=== PATIENT | female | born 1980 | race Caucasian/White ===

== ENCOUNTER 2017-09-01 16:30 | Inpatient (IN) | payer OTHER ==
[2017-09-01 16:58] VITALS: BMI 25.4
--- NOTE | 2017-09-01 20:32 | HP ---
COWS - Scale Resting Pulse: 1= [place] 81-100 Sweatin=Flushed/Facial Moisture Restless Observation: 0= Sits Still Pupil Size: 0= Normal to Room Light Bone or Joint Aches: 4=Acute Joint/Muscle Pain Runny Nose/ Eye Tearin= Runny Nose/Eyes GI Upset > 30mins: 3= Vomiting/Diarrhea (vomiting x 2, diarrhea x 3) Tremor Observation: 2= Slight Tremor Visible Yawning Observation: 1= 1-2x During Session Anxiety or Irritability: 4=Extreme Anxiety Goose Flesh Skin: 0=Smooth Skin COWS Score: 19 CIWA Score - CIWA Score Auditory Disturbances: 0-None Admission ROS BHS - HPI Chief Complaint: Heroin withdrawal symptoms Allergies/Adverse Reactions: Allergies Allergy/AdvReac Type Severity Reaction Status Date / Time No Known Allergies Allergy Verified 09/01/17 18:26 History of Present Illness: 37 years old female with four years history of heroin dependence is seeking admission to detox. Patient has been in previous detox at [facility] in [place] and reports insignificant period of sobriety. She has medical history of Hep. C, depression and anxiety. She denies suicide attempt aand suicidal ideation at this time. Exam Limitations: No Limitations - Ebola screening Have you traveled outside of the country in the last 21 days: No Have you had contact with anyone from an Ebola affected area: No Have you been sick,other than usual withdrawal symptoms: No Do you have a fever: No - Review of Systems Constitutional: Chills EENT: reports: No Symptoms Reported Respiratory: reports: No Symptoms reported Cardiac: reports: No Symptoms Reported GI: reports: Diarrhea, Poor Appetite, Poor Fluid Intake, Vomiting, Abdominal cramping : reports: No Symptoms Reported Musculoskeletal: reports: Back Pain, Joint Pain, Muscle Pain, Muscle Weakness, Neck Pain Integumentary: reports: Dryness Neuro: reports: Headache, Tremors, Weakness Endocrine: reports: No Symptoms Reported Hematology: reports: No Symptoms Reported Psychiatric: reports: Anxious, Depressed Other Systems: Reviewed and Negative Patient History - Patient Medical History Hx Anemia: No Hx Asthma: No Hx Chronic Obstructive Pulmonary Disease (COPD): No Hx Cancer: No Hx Cardiac Disorders: No Hx Congestive Heart Failure: No Hx Hypertension: No Hx Hypercholesterolemia: No Hx Pacemaker: No HX Cerebrovascular Accident: No Hx Seizures: No Hx Dementia: No Hx Diabetes: No Hx Gastrointestinal Disorders: No Hx Liver Disease: Yes (Hep. C- Not treated) Hx Genitourinary Disorders: No Hx Sexually Transmitted Disorders: No Hx Renal Disease (ESRD): No Hx Thyroid Disease: No Hx Human Immunodeficiency Virus (HIV): No (Negative 2017) Hx Hepatitis C: Yes (Not treated) Hx Depression: Yes (Wellbutrin, Gabapentin, Hydroxyzine, Topramax) Hx Suicide Attempt: No (Denies suicide attempt and suicidal ideation at this time) Hx Bipolar Disorder: Yes (Wellbutrin, Gabapentin, Hydroxyzine, Topramax) Hx Schizophrenia: No Other Medical History: Anxiety -Wellbutrin, Gabapentin, Hydroxyzine, Topramax - Patient Surgical History Past Surgical History: No Hx Neurologic Surgery: No Hx Cataract Extraction: No Hx Cardiac Surgery: No Hx Lung Surgery: No Hx Breast Surgery: No Hx Breast Biopsy: No Hx Abdominal Surgery: No Hx Appendectomy: No Hx Cholecystectomy: No Hx Genitourinary Surgery: No Hx Section: No Hx Orthopedic Surgery: No Anesthesia Reaction: No - PPD History Previous Implant?: Yes Documented Results: Negative w/o proof - Smoking Cessation Smoking history: Current every day smoker Have you smoked in the past 12 months: Yes Aproximately how many cigarettes per day: 20 Hx Chewing Tobacco Use: No Initiated information on smoking cessation: Yes 'Breaking Loose' booklet given: 09/01/17 - Substances Abused Heroin Route: Injection Frequency: Daily Amount used: 10 bags, Age of first use: 33 Date of Last Use: 08/31/17 Alprazolam (Xanax) Route: Oral Frequency: Daily Amount used: 2mg Age of first use: 18 Date of Last Use: 08/30/17 Crack Route: Smoking Frequency: Daily Amount used: 1 bag Age of first use: 29 Date of Last Use: 08/30/17 Family Disease History - Family Disease History Family History: Denies Admission Physical Exam S - Vital Signs Vital Signs: Vital Signs - 24 hr 09/01/17 16:55 Temperature 98.8 F Pulse Rate 84 Respiratory 18 Rate Blood Pressure 112/69 - Physical General Appearance: Yes: Moderate Distress, Tremorous, Irritable, Sweating, Anxious HEENTM: Yes: EOMI, Normal ENT Inspection, Normocephalic, Normal Voice, ALIA Respiratory: Yes: Lungs Clear, Normal Breath Sounds, No Respiratory Distress Neck: Yes: Supple Breast: Yes: Breast Exam Deferred Cardiology: Yes: Regular Rhythm, Regular Rate, S1, S2 Abdominal: Yes: Normal Bowel Sounds Genitourinary: Yes: Within Normal Limits Back: Yes: Normal Inspection Musculoskeletal: Yes: Back pain, Muscle Pain, Muscle weakness Extremities: Yes: Tremors Neurological: Yes: Alert, Normal Mood/Affect Integumentary: Yes: Dry Lymphatic: Yes: Within Normal Limits - Diagnostic (1) Opioid dependence with withdrawal Current Visit: Yes Status: Chronic (2) Cocaine dependence, uncomplicated Current Visit: Yes Status: Chronic (3) Cannabis dependence, uncomplicated Current Visit: Yes Status: Chronic (4) Depression Current Visit: Yes Status: Chronic (5) Anxiety Current Visit: Yes Status: Chronic (6) Hep C w/o coma, chronic Current Visit: Yes Status: Chronic Cleared for Admission [facility] - Detox or Rehab [facility] Level of Care: Medically Managed Detox Regimen/Protocol: Methadone [facility] Breath Alcohol Content Breath Alcohol Content: 0 Urine Pregancy Test - Result Urine Test Results: Negative- NO Line Present Urine Drug Screen - Results Drug Screen Negative: No Urine Drug Screen Results: THC-Marijuana, DEXTER-Cocaine, OPI-Opiates
[2017-09-01] MEDS ORDERED: IBUPROFEN 400 MG TABLET (FP) PO PRN (20:43)
[2017-09-01] MEDS ORDERED: MAG HYDROX/AL HYDROX/SIMETH 30 ML UNIT-DOSE CUP PO PRN (20:43)
[2017-09-01] MEDS ORDERED: P-EPHED 60MG/TRIPROLIDI 2.5MG TABLET PO PRN (20:43)
[2017-09-01] MEDS ORDERED: MAGNESIUM CITRATE 300 ML BOTTLE PO PRN (20:43)
[2017-09-01] MEDS ORDERED: MENTHOL/PHENOL 1 EACH UD MM PRN (20:43)
[2017-09-01] MEDS ORDERED: MAGNESIUM HYDROX 2400MG/30ML ORAL SUSPENSION 30 ML CUP PO PRN (20:43)
[2017-09-01] MEDS ORDERED: guaiFENesin/D-METHORPHAN HB 10 ML UNIT-DOSE CUPS PO PRN (20:43)
[2017-09-01] MEDS ORDERED: LOPERAMIDE HCL 2 MG CAPSULE PO PRN (20:43)
[2017-09-01] MEDS ORDERED: ACETAMINOPHEN 325 MG TABLET (FP) PO PRN (20:48)
[2017-09-01] MEDS ORDERED: METHADONE HCL 10 MG TABLET (FOR DETOX USE ONLY) PO ONE ×2 (21:00→23:00)
[2017-09-01] MEDS ORDERED: MELATONIN 5 MG TABLETS PO PRN (22:00)
[2017-09-01] MEDS: diazePAM 5 MG TABLET PO PRN (23:01)
[2017-09-01] MEDS: THIAMINE HCL 100 MG TABLET (FP) PO SCH (23:02)
[2017-09-02 08:17] LABS: URINE APPEARANCE CLEAR; URINE BILIRUBIN NEGATIVE (<2.0 mg/dL); URINE COLOR YELLOW; URINE GLUCOSE (UA) NEGATIVE (NEGATIVE); URINE KETONE 1+ (NEGATIVE); URINE LEUK ESTERASE NEGATIVE (NEGATIVE); URINE NITRITE NEGATIVE (NEGATIVE); URINE PROTEIN NEGATIVE (NEGATIVE)
--- NOTE | 2017-09-02 09:47 | EKG ---
Test Reason : Blood Pressure : / mmHG Vent. Rate : 076 BPM Atrial Rate : 076 BPM P-R Int : 128 ms QRS Dur : 072 ms QT Int : 368 ms P-R-T Axes : 071 075 047 degrees QTc Int : 414 ms NORMAL SINUS RHYTHM WITH SINUS ARRHYTHMIA NORMAL ECG NO PREVIOUS ECGS AVAILABLE Confirmed by VALDEMAR JESUS MD ([id number]) on 09/02/2017 9:47:27 AM Referred By: Confirmed By:VALDEMAR JESUS MD
[2017-09-02 09:52] LABS: HEMATOCRIT 34.1 % (32.4-45.2); HEMOGLOBIN 11.3 GM/dL (10.7-15.3); MCH 30.1 pg (25.7-33.7); MCHC 33.2 g/dl (32.0-36.0); MEAN CELL VOLUME 90.9 fl (80-96); MEAN PLT VOLUME 9.3 fl (7.5-11.1); PLATELET COUNT 161 K/MM3 (134-434); RBC 3.75 M/mm3 (3.60-5.2); RDW 16.8 % (11.6-15.6); WHITE BLOOD COUNT 6.7 K/mm3 (4.0-10.0)
[2017-09-02 10:00] LABS: CHLORIDE 108 mmol/L (98-107); POTASSIUM 3.1 mmol/L (3.5-5.1); SODIUM 142 mmol/L (136-145)
[2017-09-02] MEDS ORDERED: METHADONE HCL 10 MG TABLET (FOR DETOX USE ONLY) PO ONE (10:00)
--- NOTE | 2017-09-02 10:13 | CONSULT ---
[facility] Psychiatric Consult - Data Date of interview: 09/02/17 Admission source: [facility] Identifying data: Patient is a 37 year old single female, without kids, unemployed, homeless and not receiving financial assistance. [facility] Pt. admitted to for opiate dependence. Substance Abuse History: - Smoking Cessation. Smoking history: Current every day smoker. Have you smoked in the past 12 months: Yes. Aproximately how many cigarettes per day: 20. Hx Chewing Tobacco Use: No. Initiated information on smoking cessation: Yes. 'Breaking Loose' booklet given: 09/01/17. - Substances Abused. Heroin. Route: Injection. Frequency: Daily. Amount used: 10 bags,. Age of first use: 33. Date of Last Use: 08/31/17. Alprazolam (Xanax). Route: Oral. Frequency: Daily. Amount used: 2mg. Age of first use: 18. Date of Last Use: 08/30/17. Crack. Route: Smoking. Frequency: Daily. Amount used: 1 bag. Age of first use: 29. Date of Last Use : 08/30/17 Medical History: Hep C Psychiatric History: Patient denies h/o psychiatric hospitalizations. Pt. was receiving outpatient psychiatric care at the [facility] but since being discharged in june of this year patient has been receiving refills of her medications from detox and rehab facilites. Pt is currently prescribed Wellbutrin 300mg XL + Topamax 200mg BID + Vistaril 50mg QID. Patient denies h/o suicide attempt. Physical/Sexual Abuse/Trauma History: Denies. Mental Status Exam - Mental Status Exam Alert and Oriented to: Time, Place, Person Cognitive Function: Good Patient Appearance: Unkempt Mood: Hopeful, Euthymic Affect: Mood Congruent Patient Behavior: Appropriate, Cooperative Speech Pattern: Clear, Appropriate Voice Loudness: Normal Thought Process: Intact, Goal Oriented Thought Disorder: Not Present Hallucinations: Denies Suicidal Ideation: Denies Homicidal Ideation: Denies Insight/Judgement: Poor Sleep: Poorly Appetite: Fair Muscle strength/Tone: Normal Gait/Station: Normal Psychiatric Findings - Problem List ([place] 1, 2,3) (1) Opioid dependence with withdrawal Current Visit: Yes Status: Chronic (2) Bipolar disorder Current Visit: Yes Status: Acute Comment: Reports history (3) Cannabis dependence, uncomplicated Current Visit: Yes Status: Chronic (4) Cocaine dependence, uncomplicated Current Visit: Yes Status: Chronic (5) Hep C w/o coma, chronic Current Visit: Yes Status: Chronic - Initial Treatment Plan Initial Treatment Plan: Psychoeducation provided. Detoxification in progress. Wellbutrin 300mg XL + Topamax 200mg BID + Vistaril 50mg Q4h + Ambien 10mg qhs. Benefits and side effects discussed. Verbal consent given. Will continue to monitor.
[2017-09-02 10:40] LABS: ALK PHOS 62 U/L (45-117); ANION GAP 11 (8-16); BILIRUBIN,TOTAL 0.3 mg/dL (0.2-1.0); BLOOD UREA NITROGEN 9 mg/dL (7-18); CALCIUM 8.5 mg/dL (8.5-10.1); CO2 23 mmol/L (21-32); CREATININE 0.8 mg/dL (0.55-1.02); GLUCOSE,RANDOM 109 mg/dL (74-106); SGOT/AST 44 U/L (15-37); SGPT/ALT 68 U/L (12-78); TOT PROT 6.4 g/dl (6.4-8.2)
--- NOTE | 2017-09-02 10:58 | PN ---
BHS CIWA - CIWA Score Nausea/Vomitin-No Nausea/No Vomiting Muscle Tremors: None Anxiety: 0-No Anxiety, at Ease Agitation: 0-Normal Activity Paroxysmal Sweats: No Perspiration Orientation: 0-Oriented Tacttile Disturbances: 0-None Auditory Disturbances: 0-None (pt without Sx)
--- NOTE | 2017-09-02 11:00 | PN ---
BHS COWS - Scale Resting Pulse: 0= [place] 80 or Below Sweatin= No chills or Flushing Restless Observation: 0= Sits Still Pupil Size: 0= Normal to Room Light Bone or Joint Aches: 0= None Runny Nose/ Eye Tearin= None GI Upset > 30mins: 0= None Tremor Observation of Outstretched Hands: 0= None Yawning Observation: 0= None (pt laying in bed in NAD)
--- NOTE | 2017-09-02 11:04 | PN ---
BHS Progress Note (SOAP) Subjective: Pt is without complaints today- lying in bed. States she was in a Suboxone program but ran out of this and relapsed to using heroin- says she would like to get back on Suboxone at discharge. Also taking benzo's prn but daily per admission note Objective: 09/02/17 11:01 CBC, BMP 09/02/17 08:00 Vital Signs - 24 hr 09/01/17 09/01/17 09/02/17 16:55 23:05 00:30 Temperature 98.8 F 98.2 F Pulse Rate 84 82 Respiratory 18 18 18 Rate Blood Pressure 112/69 110/65 09/02/17 09/02/17 09/02/17 03:30 07:27 09:27 Temperature 97.7 F 97.7 F Pulse Rate 70 72 Respiratory 18 18 18 Rate Blood Pressure 102/63 93/55 lying in bed comfortably Assessment: 09/02/17 11:02 37 yo with h/o heroin use and occ zanax use- here on methadone for heroin detox and prn valium Plan: Continue methadone detox and f/u for subxone treatment at discharge. Pt is also taking Xanax- says that she only uses occasionally
[2017-09-02] MEDS: PRENATAL VITAMINS W/ FOLIC ACID TABLET (FP) PO SCH (11:06)
[2017-09-02] MEDS: NICOTINE 14 MG/24 HOURS TOPICAL PATCH TD SCH (11:08)
[2017-09-02] MEDS: diazePAM 5 MG TABLET PO PRN ×2 (11:08→17:43)
[2017-09-02] MEDS: TOPIRAMATE 100 MG TABLET PO SCH ×2 (11:13→22:09)
[2017-09-02] MEDS: hydrOXYzine PAMOATE 50 MG CAPSULE (FP) PO PRN (19:31)
[2017-09-02] MEDS: THIAMINE HCL 100 MG TABLET (FP) PO SCH (22:09)
[2017-09-02] MEDS: ZOLPIDEM TARTRATE 10 MG TABLET (PARK CARE ONLY) PO PRN (22:09)
[2017-09-03] MEDS ORDERED: METHADONE HCL 5 MG TABLET (FOR DETOX USE ONLY) PO ONE (10:00)
[2017-09-03] MEDS: TOPIRAMATE 100 MG TABLET PO SCH ×2 (10:18→22:10)
[2017-09-03] MEDS: PRENATAL VITAMINS W/ FOLIC ACID TABLET (FP) PO SCH (10:18)
[2017-09-03] MEDS: NICOTINE 14 MG/24 HOURS TOPICAL PATCH TD SCH (10:18)
[2017-09-03] MEDS: diazePAM 5 MG TABLET PO PRN ×3 (10:19→20:25)
[2017-09-03] MEDS: NICOTINE POLACRILEX 2 MG GUM BUC PRN (10:23)
[2017-09-03 10:38] LABS: ANION GAP 7 (8-16); BLOOD UREA NITROGEN 8 mg/dL (7-18); CALCIUM 8.4 mg/dL (8.5-10.1); CHLORIDE 111 mmol/L (98-107); CO2 24 mmol/L (21-32); GLUCOSE,RANDOM 84 mg/dL (74-106); POTASSIUM 3.7 mmol/L (3.5-5.1); SGOT/AST 55 U/L (15-37); SGPT/ALT 77 U/L (12-78); SODIUM 142 mmol/L (136-145)
[2017-09-03 10:40] LABS: ALK PHOS 58 U/L (45-117); BILIRUBIN,TOTAL 0.2 mg/dL (0.2-1.0); CREATININE 0.8 mg/dL (0.55-1.02); TOT PROT 6.3 g/dl (6.4-8.2)
[2017-09-03] MEDS: hydrOXYzine PAMOATE 50 MG CAPSULE (FP) PO PRN ×3 (12:31→22:14)
--- NOTE | 2017-09-03 16:10 | PN ---
[facility] Progress Note (SOAP) Subjective: sleep disturbance shakes abd cramp Anxious about not getting her valtrex Objective: 09/03/17 16:08 A & O x 3 Laboratory Last Values WBC 6.7 K/mm3 (4.0-10.0) 09/02/17 08:00 RBC 3.75 M/mm3 (3.60-5.2) 09/02/17 08:00 Hgb 11.3 GM/dL (10.7-15.3) 09/02/17 08:00 Hct 34.1 % (32.4-45.2) 09/02/17 08:00 MCV 90.9 fl (80-96) 09/02/17 08:00 MCH 30.1 pg (25.7-33.7) 09/02/17 08:00 MCHC 33.2 g/dl (32.0-36.0) 09/02/17 08:00 RDW 16.8 % (11.6-15.6) H 09/02/17 08:00 Plt Count 161 K/MM3 (134-434) 09/02/17 08:00 MPV 9.3 fl (7.5-11.1) 09/02/17 08:00 Sodium 142 mmol/L (136-145) 09/03/17 08:00 Potassium 3.7 mmol/L (3.5-5.1) 09/03/17 08:00 Chloride 111 mmol/L (98-107) H 09/03/17 08:00 Carbon Dioxide 24 mmol/L (21-32) 09/03/17 08:00 Anion Gap 7 (8-16) L 09/03/17 08:00 BUN 8 mg/dL (7-18) 09/03/17 08:00 Creatinine 0.8 mg/dL (0.55-1.02) 09/03/17 08:00 Creat Clearance w eGFR > 60 (>60) 09/03/17 08:00 Random Glucose 84 mg/dL (74-106) 09/03/17 08:00 Calcium 8.4 mg/dL (8.5-10.1) L 09/03/17 08:00 Total Bilirubin 0.2 mg/dL (0.2-1.0) D 09/03/17 08:00 AST 55 U/L (15-37) H 09/03/17 08:00 ALT 77 U/L (12-78) 09/03/17 08:00 Alkaline Phosphatase 58 U/L (45-117) 09/03/17 08:00 Total Protein 6.3 g/dl (6.4-8.2) L 09/03/17 08:00 Albumin 3.0 g/dl (3.4-5.0) L 09/03/17 08:00 Urine Color Yellow 09/01/17 23:00 Urine Appearance Clear 09/01/17 23:00 Urine pH 6.0 (5.0-8.0) 09/01/17 23:00 Ur Specific [place] 1.013 (1.001-1.035) 09/01/17 23:00 Urine Protein Negative (NEGATIVE) 09/01/17 23:00 Urine Glucose (UA) Negative (NEGATIVE) 09/01/17 23:00 Urine Ketones 1+ (NEGATIVE) H 09/01/17 23:00 Urine Blood Negative (NEGATIVE) 09/01/17 23:00 Urine Nitrite Negative (NEGATIVE) 09/01/17 23:00 Urine Bilirubin Negative (<2.0 mg/dL) 09/01/17 23:00 Urine Urobilinogen 2.0 mg/dL (0.2-1.0) H 09/01/17 23:00 Ur Leukocyte Esterase Negative (NEGATIVE) 09/01/17 23:00 RPR Titer Nonreactive (NONREACTIVE) 09/02/17 08:00 HIV 1&2 Antibody Screen Negative 09/02/17 08:00 HIV P24 Antigen Negative 09/02/17 08:00 labs noted Assessment: 09/03/17 16:09 withdrawal sx abnormal urinalysis Plan: continue detox increase water hydration Valtrx 500mg BID for Herpes
--- NOTE | 2017-09-03 16:11 | PN ---
[facility] Progress Note Note: Psychiatrist rewards consultant note: Called by nursing staff to order medication for patient. Medication reconciliation done. Gabapentin 400 mg po TID ordered
[2017-09-03] MEDS: valACYclovir HCL 500 MG TABLET (FP) PO SCH (22:10)
[2017-09-03] MEDS: GABAPENTIN 400 MG CAPSULE (FP) PO SCH (22:10)
[2017-09-03] MEDS: THIAMINE HCL 100 MG TABLET (FP) PO SCH (22:11)
[2017-09-03] MEDS: ZOLPIDEM TARTRATE 10 MG TABLET (PARK CARE ONLY) PO PRN (22:14)
[2017-09-04] MEDS: diazePAM 5 MG TABLET PO PRN ×4 (06:07→18:42)
[2017-09-04] MEDS: GABAPENTIN 400 MG CAPSULE (FP) PO SCH ×3 (06:08→22:15)
[2017-09-04] MEDS ORDERED: METHADONE HCL 5 MG TABLET (FOR DETOX USE ONLY) PO ONE (10:00)
[2017-09-04] MEDS: PRENATAL VITAMINS W/ FOLIC ACID TABLET (FP) PO SCH (10:10)
[2017-09-04] MEDS: valACYclovir HCL 500 MG TABLET (FP) PO SCH ×2 (10:10→22:15)
[2017-09-04] MEDS: TOPIRAMATE 100 MG TABLET PO SCH ×2 (10:10→22:15)
[2017-09-04] MEDS: NICOTINE 14 MG/24 HOURS TOPICAL PATCH TD SCH (10:11)
[2017-09-04] MEDS: hydrOXYzine PAMOATE 50 MG CAPSULE (FP) PO PRN ×3 (12:24→22:17)
--- NOTE | 2017-09-04 12:24 | PN ---
BHS Progress Note (SOAP) Subjective: JOINT PAINT BODY ACHE SWEAT TREMOR GI DISTRESS IRRITABLE Objective: 09/04/17 12:30 Vital Signs Temperature 97.7 F 09/04/17 09:26 Pulse Rate 88 09/04/17 09:26 Respiratory Rate 18 09/04/17 09:26 Blood Pressure 115/65 09/04/17 09:26 O2 Sat by Pulse Oximetry (%) Laboratory Last Values WBC 6.7 K/mm3 (4.0-10.0) 09/02/17 08:00 RBC 3.75 M/mm3 (3.60-5.2) 09/02/17 08:00 Hgb 11.3 GM/dL (10.7-15.3) 09/02/17 08:00 Hct 34.1 % (32.4-45.2) 09/02/17 08:00 MCV 90.9 fl (80-96) 09/02/17 08:00 MCH 30.1 pg (25.7-33.7) 09/02/17 08:00 MCHC 33.2 g/dl (32.0-36.0) 09/02/17 08:00 RDW 16.8 % (11.6-15.6) H 09/02/17 08:00 Plt Count 161 K/MM3 (134-434) 09/02/17 08:00 MPV 9.3 fl (7.5-11.1) 09/02/17 08:00 Sodium 142 mmol/L (136-145) 09/03/17 08:00 Potassium 3.7 mmol/L (3.5-5.1) 09/03/17 08:00 Chloride 111 mmol/L (98-107) H 09/03/17 08:00 Carbon Dioxide 24 mmol/L (21-32) 09/03/17 08:00 Anion Gap 7 (8-16) L 09/03/17 08:00 BUN 8 mg/dL (7-18) 09/03/17 08:00 Creatinine 0.8 mg/dL (0.55-1.02) 09/03/17 08:00 Creat Clearance w eGFR > 60 (>60) 09/03/17 08:00 Random Glucose 84 mg/dL (74-106) 09/03/17 08:00 Calcium 8.4 mg/dL (8.5-10.1) L 09/03/17 08:00 Total Bilirubin 0.2 mg/dL (0.2-1.0) D 09/03/17 08:00 AST 55 U/L (15-37) H 09/03/17 08:00 ALT 77 U/L (12-78) 09/03/17 08:00 Alkaline Phosphatase 58 U/L (45-117) 09/03/17 08:00 Total Protein 6.3 g/dl (6.4-8.2) L 09/03/17 08:00 Albumin 3.0 g/dl (3.4-5.0) L 09/03/17 08:00 Urine Color Yellow 09/01/17 23:00 Urine Appearance Clear 09/01/17 23:00 Urine pH 6.0 (5.0-8.0) 09/01/17 23:00 Ur Specific [place] 1.013 (1.001-1.035) 09/01/17 23:00 Urine Protein Negative (NEGATIVE) 09/01/17 23:00 Urine Glucose (UA) Negative (NEGATIVE) 09/01/17 23:00 Urine Ketones 1+ (NEGATIVE) H 09/01/17 23:00 Urine Blood Negative (NEGATIVE) 09/01/17 23:00 Urine Nitrite Negative (NEGATIVE) 09/01/17 23:00 Urine Bilirubin Negative (<2.0 mg/dL) 09/01/17 23:00 Urine Urobilinogen 2.0 mg/dL (0.2-1.0) H 09/01/17 23:00 Ur Leukocyte Esterase Negative (NEGATIVE) 09/01/17 23:00 RPR Titer Nonreactive (NONREACTIVE) 09/02/17 08:00 HIV 1&2 Antibody Screen Negative 09/02/17 08:00 HIV P24 Antigen Negative 09/02/17 08:00 LAB NOTED Assessment: 09/04/17 12:30 WITHDRAWAL SX Plan: CONTINUE DETOX
[2017-09-04] MEDS: NICOTINE POLACRILEX 2 MG GUM BUC PRN (13:20)
[2017-09-04] MEDS ORDERED: COLLOIDAL OATMEAL 1 BAR EACH TP PRN (14:16)
[2017-09-04] MEDS: THIAMINE HCL 100 MG TABLET (FP) PO SCH (22:15)
[2017-09-04] MEDS: ZOLPIDEM TARTRATE 10 MG TABLET (PARK CARE ONLY) PO PRN (22:15)
[2017-09-04] MEDS ORDERED: MELATONIN 5 MG TABLETS PO ONE (23:45)
--- NOTE | 2017-09-04 23:55 | PN ---
S Progress Note Note: c/o insomnia after ambien 10 mg 2 hours later. client was also given vistaril earlier with no effect. client became agitated and argumentative with staff. give melatonin 5 mg now. psych consult in am for insomnia .
[2017-09-05] MEDS: GABAPENTIN 400 MG CAPSULE (FP) PO SCH (06:46)
[2017-09-05] MEDS: hydrOXYzine PAMOATE 50 MG CAPSULE (FP) PO PRN (06:47)
--- NOTE | 2017-09-05 08:12 | PN ---
Psychiatric Progress Note Vital Signs: Vital Signs Period Temp Pulse Resp BP Sys/Benavidez Pulse Ox Last 24 Hr 97.2 F-98.4 F 88-101 18-20 93-115/56-65 Date of Session: 09/05/17 Chief Complaint:: Anxiety, agitation, insomnia HPI: Patient reports anxiety and insomnia, asking for pharmacological intervention, reports good re[ponse prior to admission for: Trazodone 100mg po qhs. Flexeril 10mg pop tid. Vistaril 100mg p[o tid Current Medications: Active Medications Generic Name Dose Route Start Last Admin Trade Name Freq PRN Reason Stop Dose Admin Acetaminophen 650 mg 09/01/17 20:48 Tylenol - PO Q4H PRN FEVER Al Hydroxide/Mg Hydroxide 30 ml 09/01/17 20:43 Mylanta Oral Suspension - PO Q6H PRN DYSPEPSIA Bupropion HCl 300 mg 09/02/17 10:15 09/04/17 10:10 Wellbutrin Xl - PO 300 mg DAILY DUSTY Administration Colloidal Oatmeal 1 applic 09/04/17 14:16 Aveeno Soap - TP DAILY PRN HYGEINE Cyclobenzaprine HCl 10 mg 09/05/17 14:00 Flexeril - PO TID DUSTY Eucalyptus/Menthol/Phenol/Sorbitol 1 each 09/01/17 20:43 Cepastat Lozenge - MM Q4H PRN SORE THROAT Gabapentin 400 mg 09/03/17 22:00 09/05/17 06:46 Neurontin - PO 400 mg TID DUSTY Administration Guaifenesin 10 ml 09/01/17 20:43 Robitussin Dm - PO Q6H PRN COUGH Hydroxyzine Pamoate 100 mg 09/05/17 14:00 Vistaril - PO TID DUSTY Ibuprofen 400 mg 09/01/17 20:43 Motrin - PO Q6H PRN PAIN LEVEL 4-6 Loperamide HCl 4 mg 09/01/17 20:43 Imodium - PO Q6H PRN DIARRHEA Magnesium Citrate 300 ml 09/01/17 20:43 Citroma - PO Q48H PRN CONSTIPATION Magnesium Hydroxide 30 ml 09/01/17 20:43 Milk Of Magnesia - PO DAILY PRN CONSTIPATION Methadone HCl 5 mg 09/06/17 06:00 Dolophine - PO 09/06/17 06:01 ONCE@0600 ONE Methadone HCl 10 mg 09/05/17 10:00 Dolophine - PO 09/05/17 10:01 ONCE ONE Nicotine 14 mg 09/02/17 10:00 09/04/17 10:11 Nicoderm Patch - TD 14 mg DAILY DUSTY Administration Nicotine Polacrilex 2 mg 09/01/17 20:43 09/04/17 13:20 Nicorette Gum - BUC 2 mg Q2H PRN Administration NICOTINE REPLACEMENT RX Multivit/Folic Acid/Iron 1 tab 09/02/17 10:00 09/04/17 10:10 Vitamins (Sjr) - PO 1 tab DAILY DUSTY Administration Pseudoephedrine/Triprolidine 1 combo 09/01/17 20:43 Actifed - PO TID PRN NASAL CONGESTION Thiamine HCl 100 mg 09/01/17 22:00 09/04/17 22:15 Vitamin B1 - PO 100 mg HS DUSTY Administration Topiramate 200 mg 09/02/17 10:15 09/04/17 22:15 Topamax - PO 200 mg BID DUSTY Administration Trazodone HCl 100 mg 09/05/17 22:00 Desyrel - PO HS DUSTY Valacyclovir HCl 500 mg 09/03/17 22:00 09/04/17 22:15 Valtrex - PO 500 mg BID DUSTY Administration Zolpidem Tartrate 10 mg 09/02/17 22:00 09/04/17 22:15 Ambien - PO 09/05/17 21:59 10 mg HS PRN Administration INSOMNIA Medication(s) Change(s): Trazodone 100mg po qhs. Flexeril 10mg pop tid. Vistaril 100mg p[o tid Mental Status Exam - Mental Status Exam Alert and Oriented to: Place, Person Cognitive Function: Fair Patient Appearance: Unkempt Mood: Anxious, Irritable Affect: Labile Patient Behavior: Talkative, Cooperative Speech Pattern: Excessive Voice Loudness: Normal Thought Process: Goal Oriented Thought Disorder: Being Controlled Hallucinations: Denies Suicidal Ideation: Denies Homicidal Ideation: Denies Insight/Judgement: Fair Sleep: Difficulty falling asleep Appetite: Weight loss Muscle strength/Tone: Normal Gait/Station: Normal Additional Comments: Trazodone 100mg po qhs. Flexeril 10mg pop tid. Vistaril 100mg p[o tid Psychiatric Treatment Plan - Problem List (1) Bipolar disorder Current Visit: Yes Comment: Reports history (2) Anxiety Current Visit: Yes (3) Cannabis dependence, uncomplicated Current Visit: Yes (4) Cocaine dependence, uncomplicated Current Visit: Yes (5) Hep C w/o coma, chronic Current Visit: Yes (6) Opioid dependence with withdrawal Current Visit: Yes (7) Xanax use disorder, mild Current Visit: Yes Initial treatment plan: Trazodone 100mg po qhs. Flexeril 10mg pop tid. Vistaril 100mg p[o tid
[2017-09-05 09:15] VITALS: BP 106/58; PULSE 85; TEMP 97.7
[2017-09-05] MEDS ORDERED: METHADONE HCL 10 MG TABLET (FOR DETOX USE ONLY) PO ONE (10:00)
[2017-09-05] MEDS: NICOTINE 14 MG/24 HOURS TOPICAL PATCH TD SCH (10:35)
[2017-09-05] MEDS: valACYclovir HCL 500 MG TABLET (FP) PO SCH (10:35)
[2017-09-05] MEDS: PRENATAL VITAMINS W/ FOLIC ACID TABLET (FP) PO SCH (10:35)
[2017-09-05] MEDS: TOPIRAMATE 100 MG TABLET PO SCH (10:35)
--- NOTE | 2017-09-05 11:54 | DS ---
[facility] Detox Discharge Summary Admission Date: 09/01/17 Discharge Date: 09/05/17 - History Present History: Opioid Dependence, Sedative Dependence Additional Comments: 37 years old female admitted 09/01/17 for benzo and opiate withdrawal sx insists to terminate benzo and opiate detox regimen the mother of the patient requests the patient to attend family matter patient is alert oriented x 3 no acute distress - Physical Exam Results Vital Signs: Vital Signs Temperature 97.7 F 09/05/17 09:14 Pulse Rate 85 09/05/17 09:14 Respiratory Rate 16 09/05/17 09:14 Blood Pressure 106/58 09/05/17 09:14 O2 Sat by Pulse Oximetry (%) Laboratory Last Values WBC 6.7 K/mm3 (4.0-10.0) 09/02/17 08:00 RBC 3.75 M/mm3 (3.60-5.2) 09/02/17 08:00 Hgb 11.3 GM/dL (10.7-15.3) 09/02/17 08:00 Hct 34.1 % (32.4-45.2) 09/02/17 08:00 MCV 90.9 fl (80-96) 09/02/17 08:00 MCH 30.1 pg (25.7-33.7) 09/02/17 08:00 MCHC 33.2 g/dl (32.0-36.0) 09/02/17 08:00 RDW 16.8 % (11.6-15.6) H 09/02/17 08:00 Plt Count 161 K/MM3 (134-434) 09/02/17 08:00 MPV 9.3 fl (7.5-11.1) 09/02/17 08:00 Sodium 142 mmol/L (136-145) 09/03/17 08:00 Potassium 3.7 mmol/L (3.5-5.1) 09/03/17 08:00 Chloride 111 mmol/L (98-107) H 09/03/17 08:00 Carbon Dioxide 24 mmol/L (21-32) 09/03/17 08:00 Anion Gap 7 (8-16) L 09/03/17 08:00 BUN 8 mg/dL (7-18) 09/03/17 08:00 Creatinine 0.8 mg/dL (0.55-1.02) 09/03/17 08:00 Creat Clearance w eGFR > 60 (>60) 09/03/17 08:00 Random Glucose 84 mg/dL (74-106) 09/03/17 08:00 Calcium 8.4 mg/dL (8.5-10.1) L 09/03/17 08:00 Total Bilirubin 0.2 mg/dL (0.2-1.0) D 09/03/17 08:00 AST 55 U/L (15-37) H 09/03/17 08:00 ALT 77 U/L (12-78) 09/03/17 08:00 Alkaline Phosphatase 58 U/L (45-117) 09/03/17 08:00 Total Protein 6.3 g/dl (6.4-8.2) L 09/03/17 08:00 Albumin 3.0 g/dl (3.4-5.0) L 09/03/17 08:00 Urine Color Yellow 09/01/17 23:00 Urine Appearance Clear 09/01/17 23:00 Urine pH 6.0 (5.0-8.0) 09/01/17 23:00 Ur Specific [place] 1.013 (1.001-1.035) 09/01/17 23:00 Urine Protein Negative (NEGATIVE) 09/01/17 23:00 Urine Glucose (UA) Negative (NEGATIVE) 09/01/17 23:00 Urine Ketones 1+ (NEGATIVE) H 09/01/17 23:00 Urine Blood Negative (NEGATIVE) 09/01/17 23:00 Urine Nitrite Negative (NEGATIVE) 09/01/17 23:00 Urine Bilirubin Negative (<2.0 mg/dL) 09/01/17 23:00 Urine Urobilinogen 2.0 mg/dL (0.2-1.0) H 09/01/17 23:00 Ur Leukocyte Esterase Negative (NEGATIVE) 09/01/17 23:00 RPR Titer Nonreactive (NONREACTIVE) 09/02/17 08:00 HIV 1&2 Antibody Screen Negative 09/02/17 08:00 HIV P24 Antigen Negative 09/02/17 08:00 lab noted Pertinent Admission Physical Exam Findings: opiate and benzo withdrawal sx Vital Signs Temperature 97.7 F 09/05/17 09:14 Pulse Rate 85 09/05/17 09:14 Respiratory Rate 16 09/05/17 09:14 Blood Pressure 106/58 09/05/17 09:14 O2 Sat by Pulse Oximetry (%) Laboratory Last Values WBC 6.7 K/mm3 (4.0-10.0) 09/02/17 08:00 RBC 3.75 M/mm3 (3.60-5.2) 09/02/17 08:00 Hgb 11.3 GM/dL (10.7-15.3) 09/02/17 08:00 Hct 34.1 % (32.4-45.2) 09/02/17 08:00 MCV 90.9 fl (80-96) 09/02/17 08:00 MCH 30.1 pg (25.7-33.7) 09/02/17 08:00 MCHC 33.2 g/dl (32.0-36.0) 09/02/17 08:00 RDW 16.8 % (11.6-15.6) H 09/02/17 08:00 Plt Count 161 K/MM3 (134-434) 09/02/17 08:00 MPV 9.3 fl (7.5-11.1) 09/02/17 08:00 Sodium 142 mmol/L (136-145) 09/03/17 08:00 Potassium 3.7 mmol/L (3.5-5.1) 09/03/17 08:00 Chloride 111 mmol/L (98-107) H 09/03/17 08:00 Carbon Dioxide 24 mmol/L (21-32) 09/03/17 08:00 Anion Gap 7 (8-16) L 09/03/17 08:00 BUN 8 mg/dL (7-18) 09/03/17 08:00 Creatinine 0.8 mg/dL (0.55-1.02) 09/03/17 08:00 Creat Clearance w eGFR > 60 (>60) 09/03/17 08:00 Random Glucose 84 mg/dL (74-106) 09/03/17 08:00 Calcium 8.4 mg/dL (8.5-10.1) L 09/03/17 08:00 Total Bilirubin 0.2 mg/dL (0.2-1.0) D 09/03/17 08:00 AST 55 U/L (15-37) H 09/03/17 08:00 ALT 77 U/L (12-78) 09/03/17 08:00 Alkaline Phosphatase 58 U/L (45-117) 09/03/17 08:00 Total Protein 6.3 g/dl (6.4-8.2) L 09/03/17 08:00 Albumin 3.0 g/dl (3.4-5.0) L 09/03/17 08:00 Urine Color Yellow 09/01/17 23:00 Urine Appearance Clear 09/01/17 23:00 Urine pH 6.0 (5.0-8.0) 09/01/17 23:00 Ur Specific [place] 1.013 (1.001-1.035) 09/01/17 23:00 Urine Protein Negative (NEGATIVE) 09/01/17 23:00 Urine Glucose (UA) Negative (NEGATIVE) 09/01/17 23:00 Urine Ketones 1+ (NEGATIVE) H 09/01/17 23:00 Urine Blood Negative (NEGATIVE) 09/01/17 23:00 Urine Nitrite Negative (NEGATIVE) 09/01/17 23:00 Urine Bilirubin Negative (<2.0 mg/dL) 09/01/17 23:00 Urine Urobilinogen 2.0 mg/dL (0.2-1.0) H 09/01/17 23:00 Ur Leukocyte Esterase Negative (NEGATIVE) 09/01/17 23:00 RPR Titer Nonreactive (NONREACTIVE) 09/02/17 08:00 HIV 1&2 Antibody Screen Negative 09/02/17 08:00 HIV P24 Antigen Negative 09/02/17 08:00 lab noted - Treatment Hospital Course: Detox Protocol Followed, Responded well Patient has Accepted a Rehab Referral to: [facility]/community self help support meetings - Medication Discharge Medications: Ambulatory Orders Bupropion HCl [Bupropion HCl ER] 200 mg PO DAILY 09/01/17 Gabapentin [Neurontin -] 400 mg PO TID 09/01/17 Hydroxyzine HCl 50 mg PO TID 09/01/17 Metronidazole 500 mg PO BID 09/01/17 Valacyclovir HCl [Valtrex -] 500 mg PO BID 09/01/17 Bupropion HCl [Wellbutrin Xl] 300 mg PO DAILY #30 tab.er.24h 09/05/17 Cyclobenzaprine HCl 10 mg PO TID #90 tablet 09/05/17 Topiramate [Topamax -] 200 mg PO BID #60 tablet 09/05/17 hydrOXYzine PAMOATE [Vistaril -] 100 mg PO TID #90 capsule 09/05/17 traZODone HCL [Desyrel -] 100 mg PO HS #30 tablet 09/05/17 - Diagnosis (1) Sedative, hypnotic or anxiolytic dependence with withdrawal, uncomplicated Current Visit: Yes Status: Acute (2) Bipolar disorder Current Visit: Yes Status: Suspected Qualifiers: Active/Remission status: in partial remission Most recent bipolar episode type: mixed Qualified Code(s): F31.77 - Bipolar disorder, in partial remission , most recent episode mixed (3) Hep C w/o coma, chronic Current Visit: No Status: Resolved (4) Opioid dependence with withdrawal Current Visit: Yes Status: Acute - AMA Did Patient Leave Against Medical Advice: Yes
[2017-09-05] MEDS ORDERED: CYCLOBENZAPRINE HCL 10 MG TABLET (FP) PO SCH (14:00)
[2017-09-05] MEDS ORDERED: hydrOXYzine PAMOATE 50 MG CAPSULE (FP) PO SCH (14:00)
[2017-09-05] MEDS ORDERED: traZODone HCL 100 MG TABLET (FP) PO SCH (22:00)
[2017-09-06] MEDS ORDERED: METHADONE HCL 5 MG TABLET (FOR DETOX USE ONLY) PO ONE (06:00)
== END 2017-09-05 11:41 | disposition left against medical advice (07) | DRG 770 ==
LOC: YASAS 16:30 → Y6N 19:08
PROVIDERS: ADMIT Family Medicine Addiction Medicine; ATTEND Family Medicine Addiction Medicine
PROC: HZ2ZZZZ Detoxification Services for Substance Abuse Treatment (ICD-10-PCS; principal; 2017-09-01)
DX: F11.23 Opioid dependence with withdrawal (principal); F13.230 Sedative, hypnotic or anxiolytic dependence with withdrawal, uncomplicated; F12.20 Cannabis dependence, uncomplicated; F17.210 Nicotine dependence, cigarettes, uncomplicated; F31.77 Bipolar disorder, in partial remission, most recent episode mixed; F41.9 Anxiety disorder, unspecified; B18.2 Chronic viral hepatitis C; R82.90 Unspecified abnormal findings in urine; Z59.0 Homelessness
CPT/HCPCS: 36415; 80053; 81003; 85027; 86593; 87389; 93005; 93010